=== PATIENT | female | born 1970 | race Caucasian/White ===

== ENCOUNTER 2017-01-05 13:00 | Outpatient (CLI) | payer OTHER ==
--- NOTE | 2017-01-05 15:00 | CT Preliminary Report ---
Exam: CT Abdomen/Pelvis W/O IMPRESSION: Small left ovary. Postoperative changes. [facility] SITE ID: [id number]
--- NOTE | 2017-01-05 15:02 | CT Report ---
EXAM: CT ABDOMEN AND PELVIS EXAM DATE: 01/05/2017 02:26 PM. CLINICAL HISTORY: PELVIC PAIN, HX OF HYSTER, ? RETAINED RT OVARY. COMPARISONS: None. TECHNIQUE: Routine helical CT imaging was performed through the abdomen and pelvis. IV contrast: None . Enteric contrast: No. Reconstructions: Coronal and sagittal. In accordance with CT protocol optimization, one or more of the following dose reduction techniques w ere utilized for this exam: automated exposure control, adjustment of mA and/or KV based on patient s ize, or use of iterative reconstructive technique. FINDINGS: Lung Bases: Unremarkable. Liver: Normal. No masses. Gallbladder/Bile Ducts: Surgically absent. No ductal dilation. Spleen: Normal. Pancreas: Normal. Adrenal Glands: Normal. Kidneys: Normal. No masses or hydronephrosis. Peritoneal Cavity/Bowel: Normal. No free fluid, free air or adenopathy. No masses or acute inflammato ry process. The appendix is well visualized and normal. Pelvic Organs: Unremarkable urinary bladder. Absent uterus. No definite right ovary. A small lobulate d structure in the left adnexa probably represents left ovary, measuring about 2.3 x 1.7 x 1.2 cm on coronal image 35 and sagittal image 33. Otherwise unremarkable. Vasculature: No aneurysms or other significant abnormality. Bones: No significant abnormality. Other: None. IMPRESSION: Small left ovary. Postoperative changes. [facility] Referring Provider Line: [phone] SITE ID: [id number]
== END 2017-01-05 13:01 | disposition home or self-care (01) ==
LOC: DI 13:00
PROVIDERS: ATTEND Family Medicine
DX: R10.2 Pelvic and perineal pain (principal)
CPT/HCPCS: 74176

== ENCOUNTER 2017-05-12 08:51 | Outpatient (CLI) | payer OTHER ==
[2017-05-12 10:05] LABS: MUDS CUTOFF CONCENTRATIONS CUTOFF CONC BELOW:
[2017-05-12 10:21] LABS: AMPHETAMINE SCREEN,URINE NEGATIVE (NEGATIVE); BENZODIAZEPINES SCREEN, URINE POSITIVE (NEGATIVE); COCAINE SCREEN URINE NEGATIVE (NEGATIVE); METHADONE SCREEN, URINE NEGATIVE (NEGATIVE); METHAMPHETAMINES SCREEN, URINE NEGATIVE (NEGATIVE); OPIATE SCREEN, URINE NEGATIVE (NEGATIVE); OXYCODONE SCREEN, URINE NEGATIVE (NEGATIVE); PROPOXYPHENE SCREEN, URINE NEGATIVE (NEGATIVE); TRICYCLIC ANTIDEPRESSANT,URINE NEGATIVE (NEGATIVE)
== END 2017-05-12 08:52 | disposition home or self-care (01) ==
LOC: LAB.R 08:51
PROVIDERS: ATTEND Family Medicine
DX: R10.2 Pelvic and perineal pain (principal); G89.4 Chronic pain syndrome
CPT/HCPCS: 80306

== ENCOUNTER 2017-06-29 21:30 | Emergency (ER) | payer OTHER ==
[2017-06-29] MEDS ORDERED: HYDROmorphone 1 MG/ML SYRINGE IM STA (22:15)
[2017-06-29] MEDS ORDERED: KETOROLAC 60 MG/2 ML VIAL IM STA (22:15)
[2017-06-29] MEDS ORDERED: ONDANSETRON ODT 4 MG TABLET TL STA (22:15)
--- NOTE | 2017-06-29 22:30 | ED Physician Documentation ---
PD HPI ABD PAIN - Stated complaint Stated Complaint: FEMALE - Chief complaint Chief Complaint: Abd Pain - History obtained from History obtained from: Patient - History of Present Illness Timing - onset: Other (46-year-old woman who remotely had robot-assisted laparoscopy with hysterectomy and oophorectomy, but was having chronic left pelvic pain and on a CT done late last year it looked like there was residual ovarian tissue which she was upset about because the original surgery was for recurrent ovarian cyst pain. She is being managed with control for this, but her control ran out 2 weeks ago and today has much more severe than usual left-sided pelvic pain radiating to the back. She tried 1 of her home oxycodone but it did not help much. She denies nausea, fevers, changes in bowel movements. No urinary complaints.) Review of Systems Constitutional: denies: Fever, Chills Cardiac: denies: Chest pain / pressure, Palpitations Respiratory: denies: Dyspnea, Cough GI: reports: Abdominal Pain. denies: Vomiting, Diarrhea PD PAST MEDICAL HISTORY - Present Medications Home Medications: Ambulatory Orders Medication Instructions Recorded Confirmed Ketorolac [Toradol] 10 mg PO Q6H PRN #14 tablet 06/29/17 Ondansetron HCl [Zofran] 4 mg PO Q6H PRN #10 tablet 06/29/17 - Allergies Allergies/Adverse Reactions: Allergies Allergy/AdvReac Type Severity Reaction Status Date / Time acetaminophen [From Vicodin] Allergy Unknown Verified 06/29/17 21:39 hydrocodone [From Vicodin] Allergy Unknown Verified 06/29/17 21:39 latex Allergy Itching Verified 06/29/17 21:39 scopolamine Allergy Hives Verified 06/29/17 21:39 Sulfa (Sulfonamide Allergy Unknown Verified 06/29/17 21:39 Antibiotics) PD ED PE NORMAL - Vitals Vital signs reviewed: Yes - General General: Alert and oriented X 3, No acute distress - Abdomen Abdomen: Normal bowel sounds, Soft, Non tender - Back Back: No CVA TTP, No spinal TTP - Neuro Neuro: Alert and oriented X 3, Normal speech Results - Vitals Vitals: Vital Signs - 24 hr 06/29/17 21:39 Temperature 36.9 C Heart Rate 89 Respiratory 20 Rate Blood Pressure 141/86 H O2 Saturation 99 Oxygen O2 Source Room air - Labs Labs: Laboratory Tests 06/29/17 06/29/17 06/29/17 22:27 22:43 22:43 WBC 9.7 RBC 4.73 Hgb 14.9 Hct 43.8 MCV 92.7 MCH 31.6 H MCHC 34.1 RDW 12.3 Plt Count 221 MPV 8.3 Neut # 6.7 H Lymph # 2.1 [place] # 0.9 Eos # 0.1 Baso # 0.0 Absolute Nucleated RBC 0.00 Nucleated RBC % 0.0 Sodium 136 Potassium 3.8 Chloride 101 Carbon Dioxide 27 Anion Gap 8.0 BUN 9 Creatinine 0.6 Estimated GFR (MDRD) 109 Glucose 105 H Calcium 9.0 Total Bilirubin 0.6 AST 23 ALT 24 Alkaline Phosphatase 60 Total Protein 7.2 Albumin 4.2 Globulin 3.0 Albumin/Globulin Ratio 1.4 Lipase 17 L Urine Color YELLOW Urine Clarity CLEAR Urine pH 7.0 Ur Specific [place] 1.015 Urine Protein NEGATIVE Urine Glucose (UA) NEGATIVE Urine Ketones NEGATIVE Urine Occult Blood TRACE-INTA Urine Nitrite NEGATIVE Urine Bilirubin NEGATIVE Urine Urobilinogen 0.2 (NORMAL) Ur Leukocyte Esterase NEGATIVE Ur Microscopic Review NOT INDICATED Urine Culture Comments NOT INDICATED Urine HCG, Qual NEGATIVE PD MEDICAL DECISION MAKING - ED course ED course: Given the timing, 2 weeks after the cessation of control, this is likely ovarian cyst pain. Given the complexity of the case I think pelvic MRI would be more sensitive than ultrasound and I advised follow-up with her primary care physician for this. Departure - Departure Disposition: 01 Home, Self Care Clinical Impression: Abdominal pain Qualifiers: Abdominal location: left lower quadrant Qualified Code(s): R10.32 - Left lower quadrant pain Condition: Good Record reviewed to determine appropriate education?: Yes Instructions: ED Pelvic Pain [facility] Prescriptions: Ketorolac [Toradol] 10 mg PO Q6H PRN #14 tablet PRN Reason: Pain Ondansetron HCl [Zofran] 4 mg PO Q6H PRN #10 tablet PRN Reason: Nausea / Vomiting Comments: Continue your oxycodone as needed, follow-up with Dr. Avery, consider pelvic MRI to better delineate your pelvic structures and after that referral to gynecology to see if repeat surgery might be an option. Increase her control to twice a day for the next couple of days. Return if worse or if new symptoms develop.
[2017-06-29 22:34] LABS: BILIRUBIN,URINE NEGATIVE (NEGATIVE); GLUCOSE, URINE (UA) NEGATIVE (NEGATIVE); KETONES,URINE (UA) NEGATIVE (NEGATIVE); LEUKOCYTE ESTERASE, URINE NEGATIVE (NEGATIVE); NITRITE,URINE NEGATIVE (NEGATIVE); OCCULT BLOOD,URINE TRACE-INTA (NEGATIVE); PROTEIN,URINE NEGATIVE (NEGATIVE); UROBILINOGEN,URINE 0.2 (NORMAL) E.U./dL (NORMAL)
[2017-06-29 22:37] LABS: CLARITY,URINE CLEAR (CLEAR); HCG UR QUAL NEGATIVE
[2017-06-29 22:50] LABS: BASOPHILS % (AUTO) 0.4 %; EOSINOPHILS # (AUTO) 0.1 10^3/uL (0.0-0.7); EOSINOPHILS % (AUTO) 0.6 %; HGB - HEMOGLOBIN 14.9 g/dL (12.0-16.0); LYMPHOCYTES # (AUTO) 2.1 10^3/uL (1.5-3.5); LYMPHOCYTES % (AUTO) 21.3 %; MEAN CORPUSCULAR HEMOGLOBIN 31.6 pg (27.0-31.0); MEAN CORPUSCULAR HGB CONC 34.1 g/dL (32.0-36.0); MEAN CORPUSCULAR VOLUME 92.7 fL (81.0-99.0); MEAN PLATELET VOLUME 8.3 fL (7.9-10.8); MONOCYTES # (AUTO) 0.9 10^3/uL (0.0-1.0); MONOCYTES % (AUTO) 8.8 %; NEUTROPHILS # (AUTO) 6.7 10^3/uL (1.5-6.6); NEUTROPHILS % (AUTO) 68.9 %; PLT - PLATELET COUNT 221 10^3/uL (130-450); RED BLOOD COUNT 4.73 10^6/uL (4.20-5.40); RED CELL DISTRIBUTION WIDTH 12.3 % (12.0-15.0); WHITE BLOOD COUNT 9.7 x10^3/uL (4.8-10.8)
[2017-06-29 23:03] LABS: ALBUMIN 4.2 g/dL (3.2-5.5); ALBUMIN/GLOBULIN RATIO 1.4 (1.0-2.2); BILIRUBIN,TOTAL 0.6 mg/dL (0.2-1.0); CREATININE 0.6 mg/dL (0.4-1.0); TOTAL PROTEIN 7.2 g/dL (6.7-8.2)
[2017-06-29] MEDS ORDERED: ONDANSETRON ODT 4 MG Prepack 2 TL STA (23:12)
[2017-06-29 23:30] VITALS: BP 134/85
== END 2017-06-29 23:30 | disposition home or self-care (01) ==
LOC: ED 21:30
DX: R10.32 Left lower quadrant pain (principal)
CPT/HCPCS: 36415; 80053; 81003; 81025; 83690; 85025; 96372; 99282; 99283; J1170; Q0162; 81001; 87086

== ENCOUNTER 2017-06-30 18:44 | Emergency (ER) | payer OTHER ==
[2017-06-30] MEDS ORDERED: ONDANSETRON 4 MG/2 ML VIAL IVP STA ×2 (19:23→23:29)
[2017-06-30 19:55] LABS: BASOPHILS # (AUTO) 0.1 10^3/uL (0.0-0.1); BASOPHILS % (AUTO) 0.7 %; EOSINOPHILS % (AUTO) 0.3 %; LYMPHOCYTES # (AUTO) 1.7 10^3/uL (1.5-3.5); LYMPHOCYTES % (AUTO) 17.2 %; MEAN CORPUSCULAR HEMOGLOBIN 31.3 pg (27.0-31.0); MEAN CORPUSCULAR VOLUME 92.1 fL (81.0-99.0); MEAN PLATELET VOLUME 8.5 fL (7.9-10.8); MONOCYTES # (AUTO) 0.7 10^3/uL (0.0-1.0); MONOCYTES % (AUTO) 7.1 %; NEUTROPHILS # (AUTO) 7.3 10^3/uL (1.5-6.6); NEUTROPHILS % (AUTO) 74.7 %; PLT - PLATELET COUNT 212 10^3/uL (130-450); RED BLOOD COUNT 4.46 10^6/uL (4.20-5.40); RED CELL DISTRIBUTION WIDTH 12.3 % (12.0-15.0); WHITE BLOOD COUNT 9.8 x10^3/uL (4.8-10.8)
[2017-06-30 20:00] LABS: PT - PROTHROMBIN TIME 10.8 secs (9.9-12.6)
[2017-06-30 20:07] LABS: ALBUMIN 3.8 g/dL (3.2-5.5); ALBUMIN/GLOBULIN RATIO 1.4 (1.0-2.2); BILIRUBIN,TOTAL 0.7 mg/dL (0.2-1.0); CALCIUM 8.6 mg/dL (8.5-10.3); CREATININE 0.8 mg/dL (0.4-1.0); TOTAL PROTEIN 6.6 g/dL (6.7-8.2)
[2017-06-30] MEDS ORDERED: SODIUM CHLORIDE 0.9% 1,000 ML IV ONE (20:10)
[2017-06-30] MEDS ORDERED: KETOROLAC 60 MG/2 ML VIAL IVP STA (20:10)
[2017-06-30] MEDS ORDERED: IOPAMIDOL-300 100 ML VIAL ONE (20:27)
[2017-06-30] MEDS ORDERED: IOPAMIDOL-300 100 ML VIAL IVP ONE (20:46)
--- NOTE | 2017-06-30 21:15 | CT Report ---
EXAM: CT ABDOMEN AND PELVIS EXAM DATE: 06/30/2017 08:56 PM. CLINICAL HISTORY: Flank and abdomen pain. Nausea and vomiting. Prior hysterectomy. COMPARISONS: 01/05/2017. TECHNIQUE: Routine helical CT imaging was performed through the abdomen and pelvis. IV contrast: 100M L ISOVUE 300. Enteric contrast: No. Reconstructions: Coronal and sagittal. In accordance with CT protocol optimization, one or more of the following dose reduction techniques w ere utilized for this exam: automated exposure control, adjustment of mA and/or KV based on patient s ize, or use of iterative reconstructive technique. FINDINGS: Lung Bases: Unremarkable. Liver: Normal. No masses. Gallbladder/Bile Ducts: Gallbladder surgically absent, as before. No ductal dilatation. Spleen: Normal. Pancreas: Normal. Adrenal Glands: Normal. Kidneys: Delayed left nephrographic enhancement. Minimal left perinephric and proximal. Ureteral fat stranding. Minimal left hydronephrosis and proximal hydroureter. No renal or ureteral calculi are moustapha ntified. Right kidney is normal. Peritoneal Cavity/Bowel: Unopacified stomach and small bowel are nondistended. Appendix is normal. Th ere is a small amount of formed stool in the colon. There is no pericolonic fat stranding. There is n o lymphadenopathy, ascites, or pneumoperitoneum. Pelvic Organs: Bladder normal in size and contour. No bladder calculi. No perivesical edema. Uterus s urgically absent. Right adnexa unremarkable. There is a 5.3 x 4.2 x 4.5 cm left adnexal/ovarian cyst, new. There is no significant adnexal fat stranding. Vasculature: No aneurysms or other significant abnormality. Bones: No significant abnormality. Other: Tiny fat-containing left inguinal hernia. IMPRESSION: 1. New 5.3 x 4.2 x 4.5 cm left ovarian/adnexal cyst. No adnexal edema is identified. Clinical correla tion is requested. Pelvic ultrasound may be evaluated further characterization. 2. Minimal left hydronephrosis and hydroureter with delayed left nephrographic enhancement and minima l perinephric fat stranding. The findings could reflect obstruction from mass effect on the left ovar fatuma cyst on the left ovary. Pyelonephritis is also a consideration. 3. Tiny fat-containing left inguinal hernia. [facility] Referring Provider Line: [phone] SITE ID: [id number]
[2017-06-30 21:20] LABS: BILIRUBIN,URINE NEGATIVE (NEGATIVE); GLUCOSE, URINE (UA) NEGATIVE (NEGATIVE); KETONES,URINE (UA) 40 mg/dL (NEGATIVE); LEUKOCYTE ESTERASE, URINE NEGATIVE (NEGATIVE); NITRITE,URINE NEGATIVE (NEGATIVE); OCCULT BLOOD,URINE TRACE-LYSE (NEGATIVE); PROTEIN,URINE NEGATIVE (NEGATIVE); UROBILINOGEN,URINE 0.2 (NORMAL) E.U./dL (NORMAL)
[2017-06-30 21:29] LABS: CLARITY,URINE CLEAR (CLEAR)
[2017-06-30] MEDS ORDERED: HYDROmorphone 1 MG/ML SYRINGE IVP STA ×2 (21:53→23:29)
[2017-06-30] MEDS ORDERED: POTASSIUM CHLOR 20 MEQ/100 ML 20 MEQ/100 ML BAG IV ONE (22:34)
[2017-06-30] MEDS ORDERED: DEXTROSE 5%-0.45% NACL 1,000 ML IV ONE (22:34)
[2017-06-30] MEDS ORDERED: POTASSIUM CHLOR 10 MEQ/100 ML 10 MEQ/100 ML BAG IV ONE (23:29)
[2017-07-01] MEDS ORDERED: FAMOTIDINE 20 MG/2 ML VIAL IVP STA (00:34)
[2017-07-01] MEDS ORDERED: HYDROmorphone 2 MG TABLET PO STA (01:07)
[2017-07-01] MEDS ORDERED: HYDROmorphone 1 MG/ML SYRINGE IVP STA (01:26)
[2017-07-01] MEDS ORDERED: PROMETHAZINE INJ 25 MG in SODIUM CHLORIDE 0.9% 50 ML IV STA (01:26)
--- NOTE | 2017-07-01 01:30 | ED Physician Documentation ---
PD HPI ABD PAIN - Stated complaint Stated Complaint: VOMITING BLOOD - Chief complaint Chief Complaint: General - History obtained from History obtained from: Patient - History of Present Illness Timing - onset: Chronic Timing - details: Gradual onset, Still present Quality: Cramping, Aching Location: LUQ, LLQ Radiation: Left flank Associated symptoms: Nausea, Vomiting Similar symptoms before: Work up / diagnostics, Treatment Recently seen: Emergency Dept - Additional information Additional information: patient is a 46 year old female with a history of multiple abdominal surgeries who is presenting to the emergency department for abdominal pain. Patient was seen a few days before and told it was likely a cyst. patient states that the pain has become worse and is now nauseated so she came back in for evaluation. Patient reports that she had a hysterectomy in 2016 with subsequent complications. Review of Systems Constitutional: denies: Fever, Chills Eyes: reports: Reviewed and negative Ears: reports: Reviewed and negative Nose: denies: Rhinorrhea / runny nose, Congestion Throat: reports: Reviewed and negative Cardiac: denies: Chest pain / pressure, Palpitations Respiratory: denies: Dyspnea, Cough GI: reports: Abdominal Pain, Nausea, Vomiting. denies: Constipation, Diarrhea : reports: Hesitancy. 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 - Past Surgical History General: Cholecystectomy /CUSTOMER ACCOUNT EXECUTIVE: Hysterectomy, Oophrectomy HEENT: Tonsil/Adenoidectomy - Present Medications Home Medications: Ambulatory Orders Medication Instructions Recorded Confirmed Ketorolac [Toradol] 10 mg PO Q6H PRN #14 tablet 06/29/17 Ondansetron HCl [Zofran] 4 mg PO Q6H PRN #10 tablet 18 HYDROmorphone [Dilaudid] 2 mg PO Q6H #10 tablet 07/01/17 Ondansetron Odt [Zofran] 4 mg TL Q6H PRN #10 tablet 18 Promethazine [Phenergan] 25 mg PO Q6H PRN #10 tab 07/01/17 - Allergies Allergies/Adverse Reactions: Allergies Allergy/AdvReac Type Severity Reaction Status Date / Time acetaminophen [From Vicodin] Allergy Unknown Verified 06/30/17 19:19 hydrocodone [From Vicodin] Allergy Unknown Verified 06/30/17 19:19 latex Allergy Itching Verified 06/30/17 19:19 scopolamine Allergy Hives Verified 06/30/17 19:19 Sulfa (Sulfonamide Allergy Unknown Verified 06/30/17 19:19 Antibiotics) - Social History Does the pt smoke?: No Smoking Status: Never smoker Does the pt drink ETOH?: No Does the pt have substance abuse?: No - Immunizations Immunizations are current?: Yes PD ED PE NORMAL - Vitals Vital signs reviewed: Yes - General General: Alert and oriented X 3 - HEENT HEENT: Atraumatic, PERRL - Neck Neck: Supple, no meningeal sign - Respiratory Respiratory: No respiratory distress - Abdomen Abdomen: Soft - Derm Derm: Normal color, Warm and dry - Extremities Extremities: No deformity, No edema - Neuro Neuro: Alert and oriented X 3, No motor deficit, No sensory deficit, Normal speech Eye Opening: Spontaneous Motor: Obeys Commands Verbal: Oriented GCS Score: 15 PD ED PE EXPANDED - General General: Alert, Anxious, In Pain - Abdomen Abdomen: No: Tender to palpation, Rebound, Guarding - Back Back: CVA TTP left Results - Vitals Vitals: Vital Signs - 24 hr 06/30/17 06/30/17 06/30/17 19:02 19:53 21:34 Temperature 36.6 C Heart Rate 91 94 91 Respiratory 28 H 20 15 Rate Blood Pressure 154/138 H 122/82 H 116/71 O2 Saturation 99 100 100 06/30/17 06/30/17 07/01/17 22:32 23:43 00:43 Temperature Heart Rate 89 90 85 Respiratory 15 15 15 Rate Blood Pressure 114/80 111/66 122/76 O2 Saturation 94 92 99 07/01/17 01:39 Temperature Heart Rate 93 Respiratory 15 Rate Blood Pressure 121/78 O2 Saturation 99 Oxygen O2 Source Room air - Labs Labs: Laboratory Tests 06/30/17 06/30/17 06/30/17 19:35 19:35 19:35 WBC 9.8 RBC 4.46 Hgb 14.0 Hct 41.1 MCV 92.1 MCH 31.3 H MCHC 34.0 RDW 12.3 Plt Count 212 MPV 8.5 Neut # 7.3 H Lymph # 1.7 [place] # 0.7 Eos # 0.0 Baso # 0.1 Absolute Nucleated RBC 0.00 Nucleated RBC % 0.0 PT 10.8 INR 1.0 Sodium Potassium Chloride Carbon Dioxide Anion Gap BUN Creatinine Estimated GFR (MDRD) Glucose Calcium Total Bilirubin AST ALT Alkaline Phosphatase Total Protein Albumin Globulin Albumin/Globulin Ratio Lipase Urine Color Urine Clarity Urine pH Ur Specific [place] Urine Protein Urine Glucose (UA) Urine Ketones Urine Occult Blood Urine Nitrite Urine Bilirubin Urine Urobilinogen Ur Leukocyte Esterase Ur Microscopic Review Urine Culture Comments Blood Type A POSITIVE Antibody Screen NEGATIVE 06/30/17 06/30/17 19:35 21:05 WBC RBC Hgb Hct MCV MCH MCHC RDW Plt Count MPV Neut # Lymph # [place] # Eos # Baso # Absolute Nucleated RBC Nucleated RBC % PT INR Sodium 133 L Potassium 3.3 L Chloride 104 Carbon Dioxide 20 L Anion Gap 9.0 BUN 11 Creatinine 0.8 Estimated GFR (MDRD) 78 L Glucose 111 H Calcium 8.6 Total Bilirubin 0.7 AST 22 ALT 22 Alkaline Phosphatase 60 Total Protein 6.6 L Albumin 3.8 Globulin 2.8 Albumin/Globulin Ratio 1.4 Lipase 19 L Urine Color YELLOW Urine Clarity CLEAR Urine pH 8.0 H Ur Specific [place] 1.010 Urine Protein NEGATIVE Urine Glucose (UA) NEGATIVE Urine Ketones 40 H Urine Occult Blood TRACE-LYSE Urine Nitrite NEGATIVE Urine Bilirubin NEGATIVE Urine Urobilinogen 0.2 (NORMAL) Ur Leukocyte Esterase NEGATIVE Ur Microscopic Review NOT INDICATED Urine Culture Comments NOT INDICATED Blood Type Antibody Screen - Rads (name of study) ct abd pelvis Radiology: Final report received (left ovarian cyst possible compression of left ureter causing hydronephrosis) ultrasound Radiology: Final report received (hemorrhagic ovarian cyst) PD MEDICAL DECISION MAKING - ED course Complexity details: reviewed old records, reviewed results, re-evaluated patient , considered differential, d/w patient, d/w family, d/w education consultant ED course: Patient was seen and examined at bedside. IV access was gained and labs were drawn. patient was treated with IV fluids, zofran and toradol. Imaging was ordered. When patient returned from imaging the results were reviewed. patient was found to have mild hydro and a left adenexal cyst. patient's urine was collected and showed no signs of infection. Patient was treated with dilaudid for pain. Dr. Wong was contacted and he came and evaluated the patient. (see dictated history and physical). After reviewing the images and the operative notes from patient's previous surgery it was decided that patient needed a higher level of care with specialty back up. He contacted [facility]. He discussed the case with the surgical team who stated that patient could be sent home after an ultrasound and follow up with them on monday. 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 [Other] (call on monday to schedule an appointment) Prescriptions: HYDROmorphone [Dilaudid] 2 mg PO Q6H #10 tablet Ondansetron Odt [Zofran] 4 mg TL Q6H PRN #10 tablet PRN Reason: Nausea / Vomiting Promethazine [Phenergan] 25 mg PO Q6H PRN #10 tab PRN Reason: Nausea / Vomiting Comments: Your symptoms today are being caused by an ovarian cyst. You will need to stay well hydrated and take ibuprofen for pain and dilaudid for breakthrough pain. You should call clinic at [phone] option number 3 on monday to schedule a follow up appointment. You may return to the emergency department at any time for new, worsening or uncontrollable symptoms.
--- NOTE | 2017-07-01 02:40 | Ultrasound Preliminary Report ---
Exam: US PELVIC NON OB W/DOPPLER LTD IMPRESSION: 1. Left ovarian 4.5 cm hemorrhagic cyst. No apparent complication. 2. Post hysterectomy and right oophorectomy. [facility] SITE ID: [id number]
--- NOTE | 2017-07-01 02:45 | Ultrasound Report ---
EXAM: PELVIC ULTRASOUND EXAM DATE: 07/01/2017 01:41 AM. CLINICAL HISTORY: Abdominal pain. 5 x 4 cm ovarian cyst seen on CT. COMPARISON: CT prior evening. TECHNIQUE: Realtime transabdominal pelvic scan performed to identify the uterus and adnexa and as an overview of other pelvic structures, followed by transvaginal scan to provide greater detail of the u terus and adnexa, with static image documentation. FINDINGS: Uterus: Removed. Right Ovary: Removed. Left Ovary: Volume 58 cc. Enlarged containing a complex hemorrhagic-appearing 39 x 41 x 47 mm cyst. B lood flow documented to the adjacent ovarian parenchyma during the exam. Free Fluid: Small. Other: None. IMPRESSION: 1. Left ovarian 4.5 cm hemorrhagic cyst. No apparent complication. 2. Post hysterectomy and right oophorectomy. [facility] Referring Provider Line: [phone] SITE ID: [id number]
[2017-07-01 03:02] VITALS: BP 123/72
--- NOTE | 2017-07-01 03:20 | HISTORY & PHYSICAL EXAMINATION ---
DATE OF SERVICE: 07/01/2017 Physician: Cecilio Wong MD IDENTIFICATION: The patient is a 46-year-old, G2, P0, female whose last menstrual period was at the time of hysterectomy in 2014. CHIEF COMPLAINT: Left-sided abdominal as well as flank pain. HISTORY OF PRESENT ILLNESS: The patient states that at roughly 4:30 this evening she developed right-sided abdominal flank pain. This was quite severe in nature. She presented to the ED at 1840, at which time her pain was getting progressively worse with time. She states her pain was roughly a 4 to 8 out of 10. She states it is worse with motion, but denies any relationship to bowel motion or voiding. She received a CT while in the ED, at which time she had a 5.3 x 4.2 x 4.5 cm left adnexal cyst. This was new in onset since December 2016, at which time she had a normal CT. Her CT also showed a left hydronephrosis, as well as hydroureter, which was noted to be mild. The patient in the past has been taking oral contraceptive pills for suppression, but quit them 2 weeks ago. Her surgical history is fairly complex. She had a suspected ectopic , at which time she had a right salpingectomy for the supposed ectopic , which proved to be not so. The patient lost a because of this. She has a history of recurring ovarian cysts and, because of this, she decided to pursue on a hysterectomy with bilateral oophorectomy. Robotic surgery was performed in April 2014, at which time the right ovary and uterus were taken out. At that time, she was noted to have adenomyosis, as well as small fibroid. The left tube and ovary were left in place because of extensive adhesions on that side. She had a complication of a cuff abscess at that time. She also had difficulty with an infection following her exploratory laparotomy for her suspected ectopic . In September 2014, she underwent a robotic left salpingo-oophorectomy. This also showed to have extensive adhesions and was quite difficult. 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 The pathology reports from both robotic surgeries were compatible with the tissue removed. She has done well, as long as she stayed on control pills. She presents with the aforementioned pain. MEDICAL HISTORY: Positive for some asthma. SURGICAL HISTORY: Positive for a tonsillectomy, adenoidectomy, laparoscopic cholecystectomy, right knee scope surgery, a right salpingectomy, a robotic total hysterectomy with right oophorectomy, and a robotic left salpingo-oophorectomy. CURRENT MEDICATIONS 1. Oxycodone 10 mg. 2. She also uses an inhaler on a p.r.n. basis. ALLERGIES 1. VICODIN. 2. LATEX. 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 PHYSICAL EXAMINATION GENERAL: The patient is a well-developed, well-nourished female, in mild to moderate distress. She has required Dilaudid x2. VITAL SIGNS: Blood pressure 111/66, respirations are 16. Pain she relates to being 4 to 8 out of 10. HEENT: Pupils are equal, round. Extraocular muscles are intact. HEART: Regular rate and rhythm without murmurs. LUNGS: Lung da silva are clear without rales or wheezes. ABDOMEN: Corpulent with evidence of multiple scars from previous laparotomy, as well as laparoscopic cholecystectomy, liposuction, as well as her laparoscopic hysterectomy and oophorectomies. There are good bowel sounds noted. There is no rebound noted. There is some tenderness in the left side of the abdomen. BACK: Shows some left flank tenderness. PELVIC: Reveals a palpable cyst on the left side of the pelvis. LABORATORY DATA: Electrolytes show a hyponatremia at 130, hypokalemia at 3.3. Her creatinine is 0.8, and her BUN is 11. Glucose is 111 also. CBC shows a white count of 9.8 , hemoglobin of 14.0, hematocrit of 41.1, platelets were 212. INR was 1.0. CT showed a 5.3 x 5.2 x 5.5 cm cystic structure on the left hand side, which is adjacent to and abutting the ureter on the left-hand side. There is a mild left hydronephrosis, as well as hydroureter. IMPRESSION: A 46-year-old, G2, P0 female with a left pelvic mass, presumably ovarian in origin with mild hydroureter, as well as hydronephrosis. She has normal creatinine, as well as complete blood count, urinalysis also. PLAN: Following a discussion with Dr. Lesia Nash, [employer] oncologist at the [facility], it was her recommendation that the patient be given pain medications. She is instructed to call the clinic at the [facility] on Monday morning. Telephone number is [phone], option #3. She was told that should she have increasing pain that she should present sooner. She is being discharged with Dilaudid p.o. TD: 07/01/2017 03:18 [place]
== END 2017-07-01 03:03 | disposition home or self-care (01) ==
LOC: ED 18:44
DX: N83.202 Unspecified ovarian cyst, left side (principal)
CPT/HCPCS: 36415; 74177; 76856; 80053; 81003; 83690; 85025; 85610; 86850; 86900; 86901; 93976; 96361; 96365; 96367; 96375; 96376; 99284; 99285; A9270; J1170; J7040; Q9967; 81001; 87086

== ENCOUNTER 2017-11-27 07:11 | Outpatient (CLI) | payer OTHER ==
[2017-11-27] MEDS ORDERED: IOPAMIDOL-300 100 ML VIAL ONE (07:22)
[2017-11-27] MEDS ORDERED: IOPAMIDOL-300 100 ML VIAL IVP ONE (07:50)
--- NOTE | 2017-11-27 09:42 | CT Report ---
Procedure Date: 11/27/2017 Accession Number: [id number] / [id number] Procedure: CT - Abdomen/Pelvis W/WO CPT Code: FULL RESULT: EXAM: CT ABDOMEN WITHOUT AND WITH CONTRAST EXAM DATE: 11/27/2017 08:11 AM. HISTORY: Hematuria. COMPARISON: Abdomen/pelvis with contrast 06/30/2017. TECHNIQUE: Routine helical CT imaging was performed through the abdomen before and after administration of IV contrast: Isovue 300 100 mL. Enteric contrast: No. Reconstruction: Coronal and sagittal. In accordance with CT protocol optimization, one or more of the following dose reduction techniques were utilized for this exam: automated exposure control, adjustment of mA and/or KV based on patient size, or use of iterative reconstructive technique. FINDINGS: Lung Bases: Unremarkable. Liver: Normal. No masses. Gallbladder/Bile Ducts: Status post cholecystectomy. Spleen: Normal. Pancreas: Normal. No masses or ductal obstruction. Adrenal Glands: Normal. Kidneys, ureters and bladder: Normal. No masses or hydronephrosis. The excretory phase is limited by partial opacification of the ureters. Within these limitations, no ureteral mass is identified. No bladder mass. Peritoneal Cavity/Bowel: Normal. No free fluid, free air or adenopathy. No masses or acute inflammatory process. Vasculature: No aneurysms or other significant abnormality. Bones: No aggressive osseous lesion. Other: Previously seen pelvic cyst is no longer identified. IMPRESSION: No renal masses seen. Limited evaluation of the ureters in the excretory phase with no abnormality identified. No bladder masses detected. [facility]
== END 2017-11-27 07:12 | disposition home or self-care (01) ==
LOC: DI 07:11
PROVIDERS: ATTEND Family Medicine
DX: R31.9 Hematuria, unspecified (principal)
CPT/HCPCS: 74178; Q9967

== ENCOUNTER 2019-12-30 19:51 | Emergency (ER) | payer OTHER ==
[2019-12-30] MEDS ORDERED: TETANUS/DIPHTHERIA/PERTUSSIS 0.5 ML SYRINGE IM ONE (20:07)
--- NOTE | 2019-12-30 20:16 | ED Physician Documentation ---
PD HPI UPPER EXT INJURY - Stated complaint Stated Complaint: FINGER LAC - Chief complaint Chief Complaint: Laceration - History obtained from History obtained from: Patient (She was taking out the garbage and pushing down and cut her nondominant left fourth finger on a soup can lid at home prior to arrival. Last tetanus is unknown.) Review of Systems Constitutional: reports: Reviewed and negative Eyes: reports: Reviewed and negative Ears: reports: Reviewed and negative Throat: reports: Reviewed and negative PD PAST MEDICAL HISTORY - Past Medical History Past Medical History: Yes MOLDER CLOSED MOLDS: Ovarian cysts - Past Surgical History Past Surgical History: Yes General: Cholecystectomy /MOLDER CLOSED MOLDS: Hysterectomy, Oophrectomy HEENT: Tonsil/Adenoidectomy - Present Medications Home Medications: Ambulatory Orders Medication Instructions Recorded Confirmed Control 1 tab ORAL DAILY 12/30/19 oxyCODONE [Roxicodone] 5 mg PO Q4-6H PRN 12/30/19 12/30/19 - Allergies Allergies/Adverse Reactions: Allergies Allergy/AdvReac Type Severity Reaction Status Date / Time acetaminophen [From Vicodin] Allergy Unknown Verified 12/30/19 19:58 hydrocodone [From Vicodin] Allergy Unknown Verified 12/30/19 19:58 latex Allergy Itching Verified 12/30/19 19:58 scopolamine Allergy Hives Verified 12/30/19 19:58 Sulfa (Sulfonamide Allergy Unknown Verified 12/30/19 19:58 Antibiotics) - Social History Does the pt smoke?: No Smoking Status: Never smoker Does the pt drink ETOH?: No Does the pt have substance abuse?: No - Immunizations Immunizations are current?: No Immunizations: TDAP >10years/unknown PD ED PE NORMAL - Vitals Vital signs reviewed: Yes - General General: Alert and oriented X 3, No acute distress - Extremities Extremities: Other (1 cm shallow laceration on the pulp of the left fourth finger, ulnar side. No active bleeding. It seems shallow. Normal neurovascular function of the tip.) - Neuro Neuro: Alert and oriented X 3, Normal speech Results - Vitals Vitals: Vital Signs - 24 hr 12/30/19 19:53 Temperature 36.4 C L Heart Rate 72 Respiratory 14 Rate Blood Pressure 120/80 O2 Saturation 99 Oxygen O2 Source Room air Procedures - Laceration (location) Left fourth finger Length in cm: 1 Wound type: Linear, Superficial Neurovascular status: Sensory intact, Motor intact Tendon involvement: Tendon intact Wound Preparation: Irrigated copiously NS Skin layer closure: Dermabond, Steri strips Other: Tetanus booster given Complexity: Simple Departure - Departure Disposition: 01 Home, Self Care Clinical Impression: Laceration Condition: Good Record reviewed to determine appropriate education?: Yes Instructions: ED Laceration Ext Skin Glue
[2019-12-30 20:24] VITALS: BP 120/72
== END 2019-12-30 20:24 | disposition home or self-care (01) ==
LOC: ED 19:51
DX: S61.215A Laceration without foreign body of left ring finger without damage to nail, initial encounter (principal); W26.8XXA Contact with other sharp object(s), not elsewhere classified, initial encounter; Z23 Encounter for immunization
CPT/HCPCS: 12001; 90471; 99282; 99283

== ENCOUNTER 2020-11-16 08:00 | Outpatient (CLI) | payer OTHER | END 2020-11-16 23:59 | disposition home or self-care (01) | LOC: LAB.S 08:00 | PROVIDERS: ATTEND Physician Assistant Medical | DX: R51.9 Headache, unspecified (principal); R19.7 Diarrhea, unspecified; Z20.822 Contact with and (suspected) exposure to COVID-19 ==

== ENCOUNTER 2022-01-11 17:49 | Emergency (ER) | payer OTHER ==
[2022-01-11] MEDS ORDERED: HYDROmorphone 1 MG/ML CARPUJECT IVP STA (18:21)
[2022-01-11] MEDS ORDERED: SODIUM CHLORIDE 0.9% 1,000 ML IV STA (18:21)
--- NOTE | 2022-01-11 18:26 | ED Physician Documentation ---
History of Present Illness - Stated complaint Stated Complaint: ABD PAIN - Chief complaint Chief Complaint: Abd Pain - History obtained from History obtained from: Patient - History of Present Illness Timing: How many days ago (5) Pain level max: 9 Pain level now: 8 - Additonal information Additional information: Patient is a 51-year-old female who presents to the emergency department abdominal pain. She states this been ongoing for the past 5 days. She describes the pain as burning. It is in the lower abdomen. She states that she has had 2 hysterectomies. They attempted to remove her left ovary but could not be found under the reportedly severe scar tissue that she has in her abdomen. She states that she has a history of polycystic ovarian syndrome. Stopped her control recently and began to have this pain. She states that she went back on the hormonal OCPs. She states that she is taking oxycodone at home without relief. She has had a small amount of diarrhea. No vomiting. No fevers. No chills. No vaginal bleeding or discharge. 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 Other Past Medical History: Polycystic ovarian syndrome - Past Surgical History Past Surgical History: Yes General: Cholecystectomy /INTELLIGENCE CONSULTANT: Hysterectomy, Oophrectomy HEENT: Tonsil/Adenoidectomy - Present Medications Home Medications: Ambulatory Orders Medication Instructions Recorded Confirmed Control 1 tab ORAL DAILY 12/30/19 01/11/22 oxyCODONE [Roxicodone] 5 mg PO Q4-6H PRN 12/30/19 01/11/22 HYDROmorphone [Dilaudid] 2 mg PO Q6H PRN #14 tablet 01/11/22 - Allergies Allergies/Adverse Reactions: Allergies Allergy/AdvReac Type Severity Reaction Status Date / Time acetaminophen [From Vicodin] Allergy Unknown Verified 01/11/22 17:55 hydrocodone [From Vicodin] Allergy Unknown Verified 01/11/22 17:55 latex Allergy Itching Verified 01/11/22 17:55 scopolamine Allergy Hives Verified 01/11/22 17:55 Sulfa (Sulfonamide Allergy Unknown Verified 01/11/22 17:55 Antibiotics) - Social History Does the pt smoke?: No Smoking Status: Never smoker Does the pt drink ETOH?: No Does the pt have substance abuse?: No - Immunizations Immunizations are current?: No Immunizations: TDAP >10years/unknown PD ED PE NORMAL - Vitals Vital signs reviewed: Yes - General General: Alert and oriented X 3, Other (Appears uncomfortable.) - HEENT HEENT: Moist mucous membranes - Neck Neck: Supple, no meningeal sign - Cardiac Cardiac: RRR, Strong equal pulses - Respiratory Respiratory: No respiratory distress, Clear bilaterally - Abdomen Abdomen: Soft, Non distended, Other (Mild diffuse tenderness to palpation, worse in the left pelvic region. No peritoneal signs) - Back Back: No CVA TTP, No spinal TTP - Derm Derm: Warm and dry - Extremities Extremities: No edema - Neuro Neuro: Alert and oriented X 3 Results - Vitals Vitals: Vital Signs - 24 hr 01/11/22 01/11/22 01/11/22 17:55 17:59 19:39 Temperature 37.2 C 37.2 C 37.1 C Heart Rate 72 72 125 H Respiratory 18 18 17 Rate Blood Pressure 138/75 H 138/75 H 122/72 O2 Saturation 99 99 98 Oxygen O2 Source Room air - Labs Labs: Laboratory Tests 01/11/22 01/11/22 01/11/22 18:25 18:25 18:25 WBC 5.5 RBC 4.37 Hgb 14.3 Hct 40.3 MCV 92.2 MCH 32.7 H MCHC 35.5 RDW 11.8 L Plt Count 195 MPV 9.6 Neut # (Auto) 3.0 Lymph # (Auto) 1.9 [place] # (Auto) 0.5 Eos # (Auto) 0.1 Baso # (Auto) 0.0 Absolute Nucleated RBC 0.00 Nucleated RBC % 0.0 Sodium 137 Potassium 3.5 Chloride 101 Carbon Dioxide 28 Anion Gap 8.0 BUN 12 Creatinine 0.6 Estimated GFR (MDRD) 106 Glucose 97 Calcium 9.2 Total Bilirubin 0.4 AST 26 ALT 26 Alkaline Phosphatase 66 Total Protein 7.1 Albumin 4.1 Globulin 3.0 Albumin/Globulin Ratio 1.4 Lipase 26 Urine Color YELLOW Urine Clarity CLEAR Urine pH 7.5 Ur Specific [place] 1.015 Urine Protein NEGATIVE Urine Glucose (UA) NEGATIVE Urine Ketones NEGATIVE Urine Occult Blood TRACE-INTA Urine Nitrite NEGATIVE Urine Bilirubin NEGATIVE Urine Urobilinogen 0.2 (NORMAL) Ur Leukocyte Esterase NEGATIVE Ur Microscopic Review NOT INDICATED Urine Culture Comments NOT INDICATED - Rads (name of study) CT abdomen pelvis Radiology: Final report received, EMP read contemporaneously, See rad report PD MEDICAL DECISION MAKING - ED course Complexity details: reviewed results, re-evaluated patient, considered differential, d/w patient ED course: Patient has what appears to be a 4.5 cm left ovarian cyst. Pain well controlled in the emergency department. No significant lab abnormalities. No other acute abnormalities on CT scan. She is on oxycodone at home, we will increase her to Dilaudid for couple of days until the acute pain has been controlled. Patient will follow up with her doctor for further care. Patient is well-appearing, nontoxic. Afebrile. I am prescribing a short course of short-acting opioid pain medication for this patient. 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 I have discussed that the opioids are for short term therapy only, and will not be refilled from the ED. patient counseled regarding signs and symptoms for which I believe and urgent re-evaluation would be necessary. Patient with good understanding of and agreement to plan and is comfortable going home at this time This document was made in part using voice recognition software. While efforts are made to proofread this document, sound alike and grammatical errors may occur. Departure - Departure Disposition: 01 Home, Self Care Clinical Impression: Ovarian cyst Qualifiers: Laterality: left Qualified Code(s): N83.202 - Unspecified ovarian cyst, left side Condition: Good Instructions: ED Cyst Ovarian Follow-Up: ZAIRE CHAVEZ MD [Primary Care Provider] - Within 1 week Prescriptions: HYDROmorphone [Dilaudid] 2 mg PO Q6H PRN #14 tablet PRN Reason: Abdominal Pain Comments: You appear to have a 4.5 cm left ovarian cyst. This is likely the cause of your pain. We will trial you on a short course of hydromorphone for home. You can use this for breakthrough pain. Your prescriptions were sent to [facility]. Please return if you worsen. Your doctor may want to consider repeat imaging in 4 to 6 weeks. I am prescribing a short course of narcotic pain medication for you. These are potentially dangerous and addictive medications that should be used carefully. These medications may constipate you. Take an yire-fzt-[id number] stool softener (docusate) twice daily with plenty of water while taking these medications. If you go 24 hours without a bowel movement, take [id number] miralax, per package instructions. Do not drink or drive while taking these medications. If you received narcotic or sedating medications while in the emergency department, do not drive for 24 hours. Store this medication in a safe, secure place and out of reach of children. It is a violation of federal law to give or sell this medication to another person or to use in a manner other than prescribed. The ED will not refill narcotic prescriptions, including prescriptions lost or stolen. To dispose of unwanted medications: 1. [facility] [address] in [place] has a medication drop box. They accept prescription medications (in pill form) Monday through Monday 9:00 a.m. to 5:00 p.m. 2. [facility] accepts prescription medications (in pill form only) for disposal year round. Call for more information. 3. Contact the [facility] for the next [facility] sponsored prescription drug collection event. , [phone], or [phone]; CT FINDINGS: ABDOMEN: Lung bases: Lung bases are clear. Heart size is normal. Solid organs: Liver and spleen are normal in size and enhancement. Gallbladder is surgically absent. Biliary system is non dilated. Pancreas enhances normally. No adrenal nodules. Kidneys demonstrate normal size and enhancement, without hydronephrosis. Peritoneum and bowel: Bowel loops demonstrate normal wall thickness and caliber. Normal appendix. No free fluid or air. Nodes and vessels: No retroperitoneal or mesenteric adenopathy by size criteria. Aorta and inferior vena cava are normal in size. Miscellaneous: No ventral hernias. Mild chronic linear stranding in the subcutaneous tissues may be postsurgical. PELVIS: Genitourinary: Bladder wall thickness is normal. Status post hysterectomy. A 4.5 cm left ovarian cyst is present. Miscellaneous: No inguinal hernias or adenopathy. Bones: No suspicious bony lesions. No vertebral body compression fractures. IMPRESSION: 1.Left ovarian 4.5 cm cyst is new compared to the prior CT from 11/27/2017, although the appearance is similar when compared to the CT from 06/30/2017. 2.Otherwise, no acute abnormality seen in the abdomen or pelvis. Discharge Date/Time: 01/11/22 19:47
[2022-01-11 18:33] LABS: BASOPHILS % (AUTO) 0.5 %; EOSINOPHILS # (AUTO) 0.1 10^3/uL (0.0-0.7); EOSINOPHILS % (AUTO) 1.5 %; HCT - HEMATOCRIT 40.3 % (37.0-47.0); HGB - HEMOGLOBIN 14.3 g/dL (12.0-16.0); LYMPHOCYTES # (AUTO) 1.9 10^3/uL (1.5-3.5); LYMPHOCYTES % (AUTO) 33.9 %; MEAN CORPUSCULAR HEMOGLOBIN 32.7 pg (27.0-31.0); MEAN CORPUSCULAR HGB CONC 35.5 g/dL (32.0-36.0); MEAN CORPUSCULAR VOLUME 92.2 fL (81.0-99.0); MEAN PLATELET VOLUME 9.6 fL (7.9-10.8); MONOCYTES # (AUTO) 0.5 10^3/uL (0.0-1.0); MONOCYTES % (AUTO) 9.7 %; NEUTROPHILS % (AUTO) 54.2 %; PLT - PLATELET COUNT 195 10^3/uL (130-450); RED BLOOD COUNT 4.37 10^6/uL (4.20-5.40); RED CELL DISTRIBUTION WIDTH 11.8 % (12.0-15.0); WHITE BLOOD COUNT 5.5 x10^3/uL (4.8-10.8)
[2022-01-11 18:37] LABS: BILIRUBIN,URINE NEGATIVE (NEGATIVE); CLARITY,URINE CLEAR (CLEAR); GLUCOSE, URINE (UA) NEGATIVE (NEGATIVE); KETONES,URINE (UA) NEGATIVE (NEGATIVE); LEUKOCYTE ESTERASE, URINE NEGATIVE (NEGATIVE); NITRITE,URINE NEGATIVE (NEGATIVE); OCCULT BLOOD,URINE TRACE-INTA (NEGATIVE); PH,URINE 7.5 PH (5.0-7.5); PROTEIN,URINE NEGATIVE (NEGATIVE); UROBILINOGEN,URINE 0.2 (NORMAL) E.U./dL (NORMAL)
[2022-01-11 18:46] LABS: ALBUMIN 4.1 g/dL (3.2-5.5); ALBUMIN/GLOBULIN RATIO 1.4 (1.0-2.2); BILIRUBIN,TOTAL 0.4 mg/dL (0.2-1.0); CALCIUM 9.2 mg/dL (8.5-10.3); CREATININE 0.6 mg/dL (0.4-1.0); POTASSIUM 3.5 mmol/L (3.5-5.0); TOTAL PROTEIN 7.1 g/dL (6.7-8.2)
--- NOTE | 2022-01-11 19:21 | CT Report ---
PROCEDURE: Abdomen/Pelvis W INDICATIONS: lower abd pain, has 1 ovary, hx of hysterectomy CONTRAST: IV CONTRAST: Optiray 320 ml: 100 PO CONTRAST: *NO PO CONTRAST TECHNIQUE: After the administration of intravenous contrast, 5 mm thick sections acquired from the diaphragms to the symphysis. 5 mm thick coronal and sagittal reformats were acquired. For radiation dose reducti on, the following was used: automated exposure control, adjustment of mA and/or kV according to morro ent size. COMPARISON: CT abdomen/pelvis 11/27/2017 and 06/30/2017, pelvic ultrasound 07/02/1979 FINDINGS: Image quality: Excellent. ABDOMEN: Lung bases: Lung bases are clear. Heart size is normal. Solid organs: Liver and spleen are normal in size and enhancement. Gallbladder is surgically absent . Biliary system is non dilated. Pancreas enhances normally. No adrenal nodules. Kidneys demonstr ate normal size and enhancement, without hydronephrosis. Peritoneum and bowel: Bowel loops demonstrate normal wall thickness and caliber. Normal appendix. N o free fluid or air. Nodes and vessels: No retroperitoneal or mesenteric adenopathy by size criteria. Aorta and inferior vena cava are normal in size. Miscellaneous: No ventral hernias. Mild chronic linear stranding in the subcutaneous tissues may be postsurgical. PELVIS: Genitourinary: Bladder wall thickness is normal. Status post hysterectomy. A 4.[address] is present. Miscellaneous: No inguinal hernias or adenopathy. Bones: No suspicious bony lesions. No vertebral body compression fractures. IMPRESSION: 1.Left ovarian 4.5 cm cyst is new compared to the prior CT from 11/27/2017, although the appearance is similar when compared to the CT from 06/30/2017. 2.Otherwise, no acute abnormality seen in the abdomen or pelvis. Reviewed by: Casper Hudson MD on 01/11/2022 7:19 PM PDT Approved by: Casper Hudson MD on 01/11/2022 7:19 PM PDT Station ID: [id number]
[2022-01-11] MEDS ORDERED: HYDROmorphone 2 MG TABLET PO STA (19:28)
[2022-01-11 19:41] VITALS: BP 122/72
== END 2022-01-11 19:47 | disposition home or self-care (01) ==
LOC: ED 17:49
DX: N83.202 Unspecified ovarian cyst, left side (principal)
CPT/HCPCS: 36415; 74177; 80053; 81003; 83690; 85025; 96374; 99284; A9270; J1170; Q9967; 81001; 87086

== ENCOUNTER 2022-08-02 12:22 | Outpatient (CLI) | payer OTHER ==
--- NOTE | 2022-08-02 14:00 | XRAY Report ---
PROCEDURE: Thoracic Spine 2 View INDICATIONS: CERVICAL, THORACIC, AND LUMBAR STRAIN TECHNIQUE: 2 views of the thoracic spine were acquired. COMPARISON: None. FINDINGS: Bones: No fractures or dislocations. No suspicious bony lesions. 12 pairs of ribs are noted, and a ppear intact where visualized. Minimal, multilevel disc loss. Soft tissues: No paravertebral stripe thickening. IMPRESSION: Minimal degenerative disc disease. Reviewed by: Negrito Turpin on 08/02/2022 1:58 PM PDT Approved by: Negrito Turpin on 08/02/2022 1:58 PM PDT Station ID: [id number]
--- NOTE | 2022-08-02 14:01 | XRAY Report ---
PROCEDURE: Lumbar Spine 2 View INDICATIONS: CERVICAL, THORACIC, AND LUMBAR STRAIN TECHNIQUE: 3 views of the lumbar spine were acquired. COMPARISON: None. FINDINGS: Bones: 5 rrx-hvp-nurkcgs vertebrae are present. There is normal bony alignment. No vertebral body compression fractures. No suspicious bony lesions. Mild disc height loss at L4-5 and L5-S1. Facet a rthrosis at L3-S1. Soft tissues: Overlying bowel gas pattern is normal. No suspicious soft tissue calcifications. IMPRESSION: Mild disc height loss at L4-5 and L5-S1. Facet arthrosis L3-S1. Reviewed by: Negrito Turpin on 08/02/2022 1:59 PM PDT Approved by: Negrito Turpin on 08/02/2022 1:59 PM PDT Station ID: [id number]
--- NOTE | 2022-08-02 14:03 | XRAY Report ---
PROCEDURE: Cervical Spine Comp w/Flex/Ext INDICATIONS: CERVICAL SPRAIN/STRAIN TECHNIQUE: 5 views of the cervical spine were acquired. COMPARISON: None. FINDINGS: Bones: No fractures or dislocations to the C7 level. No suspicious bony lesions. There is normal r swetha of motion between flexion and extension, with preserved normal bony alignment. Soft tissues: Prevertebral soft tissues are normal in thickness. IMPRESSION: No significant degenerative change or acute bony abnormality. Reviewed by: Negrito Turpin on 08/02/2022 2:01 PM PDT Approved by: Negrito Turpin on 08/02/2022 2:01 PM PDT Station ID: [id number]
== END 2022-08-02 12:23 | disposition home or self-care (01) ==
LOC: DI.S 12:22
PROVIDERS: ATTEND Chiropractor
DX: M51.34 Other intervertebral disc degeneration, thoracic region (principal); M47.816 Spondylosis without myelopathy or radiculopathy, lumbar region; M51.36 Other intervertebral disc degeneration, lumbar region; M51.37 Other intervertebral disc degeneration, lumbosacral region; M47.817 Spondylosis without myelopathy or radiculopathy, lumbosacral region

== ENCOUNTER 2022-08-28 18:09 | Emergency (ER) | payer OTHER ==
--- NOTE | 2022-08-28 18:33 | ED Physician Documentation ---
PD HPI ABD PAIN - Stated complaint Stated Complaint: BLOATING - Chief complaint Chief Complaint: Abd Pain - History obtained from History obtained from: Patient - Additional information Additional information: 51-year-old woman who has had a hysterectomy with retained ovarian tissue due to PCOS and has recurrent ovarian cysts started a new supplement called [employer]School about a week ago. Starting 5 days ago she feels very bloated and skipped a few bowel movements. Had a very large bowel movement prior to arrival, but no relief of her bloating. She has early satiety and pain is radiating up. 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: Ovarian cysts - Past Surgical History Past Surgical History: Yes General: Cholecystectomy /METAL OR WOOD BLOCKER: Hysterectomy, Oophrectomy HEENT: Tonsil/Adenoidectomy - Present Medications Home Medications: Ambulatory Orders Medication Instructions Recorded Confirmed Control 1 tab ORAL DAILY 12/30/19 01/11/22 oxyCODONE [Roxicodone] 5 mg PO Q4-6H PRN 12/30/19 01/11/22 HYDROmorphone [Dilaudid] 2 mg PO Q6H PRN #14 tablet 01/11/22 Dicyclomine [Bentyl] 1 - 2 tab PO QID PRN #20 cap 08/29/22 Omeprazole 40 mg PO DAILY #30 cap 08/29/22 predniSONE [Deltasone] 40 mg PO DAILY 7 Days #14 tablet 08/29/22 - Allergies Allergies/Adverse Reactions: Allergies Allergy/AdvReac Type Severity Reaction Status Date / Time acetaminophen [From Vicodin] Allergy Unknown Verified 08/28/22 18:16 hydrocodone [From Vicodin] Allergy Unknown Verified 08/28/22 18:16 latex Allergy Itching Verified 08/28/22 18:16 scopolamine Allergy Hives Verified 08/28/22 18:16 Sulfa (Sulfonamide Allergy Unknown Verified 08/28/22 18:16 Antibiotics) - Social History Does the pt smoke?: No Smoking Status: Never smoker Does the pt drink ETOH?: No Does the pt have substance abuse?: No - Immunizations Immunizations are current?: No Immunizations: TDAP >10years/unknown PD ED PE NORMAL - Vitals Vital signs reviewed: Yes - General General: Alert and oriented X 3, No acute distress - Cardiac Cardiac: RRR, No murmur - Respiratory Respiratory: No respiratory distress, Clear bilaterally - Abdomen Abdomen: Other (Somewhat bloated without ascites, diminished bowel sounds without tenderness.) - Neuro Neuro: Alert and oriented X 3, Normal speech Results - Vitals Vitals: Vital Signs - 24 hr 08/28/22 08/28/22 08/28/22 18:13 20:16 22:00 Temperature 36.7 C 36.2 C L Heart Rate 90 83 98 Respiratory 16 18 18 Rate Blood Pressure 118/85 H 99/66 119/81 H O2 Saturation 98 98 98 Oxygen O2 Source Room air - Labs Labs: Laboratory Tests 08/28/22 08/28/22 08/28/22 18:43 18:43 18:52 WBC 7.1 RBC 4.75 Hgb 14.9 Hct 44.0 MCV 92.6 MCH 31.4 H MCHC 33.9 RDW 11.8 L Plt Count 256 MPV 10.0 Neut # (Auto) 4.5 Lymph # (Auto) 1.8 [place] # (Auto) 0.5 Eos # (Auto) 0.1 Baso # (Auto) 0.0 Absolute Nucleated RBC 0.00 Nucleated RBC % 0.0 Sodium 136 Potassium 4.5 Chloride 102 Carbon Dioxide 25 Anion Gap 9.0 BUN 11 Creatinine 0.6 Estimated GFR (MDRD) 106 Glucose 102 H Calcium 9.2 Total Bilirubin 0.6 AST 19 ALT 12 Alkaline Phosphatase 53 Total Protein 6.8 Albumin 3.6 Globulin 3.2 Albumin/Globulin Ratio 1.1 Lipase 28 Urine Color YELLOW Urine Clarity CLEAR Urine pH 6.0 Ur Specific [place] 1.010 Urine Protein NEGATIVE Urine Glucose (UA) NEGATIVE Urine Ketones NEGATIVE Urine Occult Blood TRACE-LYSE Urine Nitrite NEGATIVE Urine Bilirubin NEGATIVE Urine Urobilinogen 0.2 (NORMAL) Ur Leukocyte Esterase NEGATIVE Ur Microscopic Review NOT INDICATED Urine Culture Comments NOT INDICATED - Rads (name of study) CT A/P Relevant Findings:: Final report received, EMP independent interpretation of test PD Medical Decision Making - ED course ED course: 51-year-old woman on chronic opiates presents with 5 days of feeling very bloated with abdominal cramping but a benign exam. She declined any pain medication here. Her CBC was reviewed and normal, CMP reviewed and normal. Did a CAT scan with IV contrast. On my independent review. She has a little excess stool especially in the transverse colon with I think probably a mild enteritis. The previously noted right ovarian cyst from the prior scan has resolved. We are seeing very delayed radiology turnaround times this evening and after discussion she would like to go home and do some MiraLAX and a clear liquid diet and I will call her tomorrow if there are major abnormal findings on the CT scan. Called and spoke with pt 0900 08/29/22 and discussed possiblesclerosing mesenteritis. Emailed uptodate article and rx to [facility] incl pred. D/w need for f/u and potential bx if not improving or recurrent. Departure - Departure Disposition: Home, Self Care Clinical Impression: Abdominal pain Qualifiers: Abdominal location: generalized Qualified Code(s): R10.84 - Generalized abdominal pain Condition: Good Record reviewed to determine appropriate education?: Yes Instructions: ED Abdominal Pain Female Non-Specific Abdominal Pain Prescriptions: Dicyclomine [Bentyl] 1 - 2 tab PO QID PRN #20 cap PRN Reason: Abdominal Pain predniSONE [Deltasone] 40 mg PO DAILY 7 Days #14 tablet Omeprazole 40 mg PO DAILY #30 cap Comments: As discussed, on my view of your CAT scan the previously noted ovarian cyst from December of last year has resolved. I think you have probably a mild enteritis and modest constipation. I would recommend a clear liquid diet with a daily dose of MiraLAX for the next day. You can continue the MiraLAX after that. I will call you tomorrow at [phone] if there are significant abnormal findings on the CT. Return if worse. Follow-up with your primary care physician. Discharge Date/Time: 08/28/22 22:31
[2022-08-28] MEDS ORDERED: iohexoL-300 100 ML VIAL ONE (18:46)
[2022-08-28 18:48] LABS: BASOPHILS % (AUTO) 0.6 %; EOSINOPHILS # (AUTO) 0.1 10^3/uL (0.0-0.7); EOSINOPHILS % (AUTO) 1.4 %; HGB - HEMOGLOBIN 14.9 g/dL (12.0-16.0); LYMPHOCYTES # (AUTO) 1.8 10^3/uL (1.5-3.5); MEAN CORPUSCULAR HEMOGLOBIN 31.4 pg (27.0-31.0); MEAN CORPUSCULAR HGB CONC 33.9 g/dL (32.0-36.0); MEAN CORPUSCULAR VOLUME 92.6 fL (81.0-99.0); MONOCYTES # (AUTO) 0.5 10^3/uL (0.0-1.0); MONOCYTES % (AUTO) 7.7 %; NEUTROPHILS # (AUTO) 4.5 10^3/uL (1.5-6.6); NEUTROPHILS % (AUTO) 64.2 %; PLT - PLATELET COUNT 256 10^3/uL (130-450); RED BLOOD COUNT 4.75 10^6/uL (4.20-5.40); RED CELL DISTRIBUTION WIDTH 11.8 % (12.0-15.0); WHITE BLOOD COUNT 7.1 x10^3/uL (4.8-10.8)
[2022-08-28 19:11] LABS: ALBUMIN 3.6 g/dL (3.2-5.5); ALBUMIN/GLOBULIN RATIO 1.1 (1.0-2.2); BILIRUBIN,TOTAL 0.6 mg/dL (0.2-1.0); CALCIUM 9.2 mg/dL (8.5-10.3); CREATININE 0.6 mg/dL (0.4-1.0); POTASSIUM 4.5 mmol/L (3.5-5.0); TOTAL PROTEIN 6.8 g/dL (6.7-8.2)
[2022-08-28 22:09] VITALS: BP 119/81
[2022-08-28] MEDS ORDERED: polyethylene glycoL 3350 17 GM PACKET PO STA (22:13)
--- NOTE | 2022-08-28 23:19 | CT Report ---
PROCEDURE: ABDOMEN/PELVIS W INDICATIONS: abd pain CONTRAST: 100 ML OMNI 300 TECHNIQUE: After the administration of intravenous contrast, 5 mm thick sections acquired from the diaphragms to the symphysis. 5 mm thick coronal and sagittal reformats were acquired. For radiation dose reducti on, the following was used: automated exposure control, adjustment of mA and/or kV according to morro ent size. COMPARISON: CT abdomen pelvis 01/11/2022, 11/27/2017 FINDINGS: Image quality: Excellent. Lung bases: Unremarkable. Heart: Heart is normal in size. ABDOMEN: Liver: No mass lesion. Gallbladder:Surgically absent. There is mild biliary ductal dilatation. No calcified common duct sto shannan. Findings are similar to the prior studies and may reflect sequelae of prior cholecystectomy. Biliary ducts:There is mild central intrahepatic Pancreas: Unremarkable. Spleen: Normal in size. Adrenal Glands: No adrenal nodules. Kidneys and Ureters: No hydronephrosis. Stomach and Bowel: Stomach, small bowel loops, and colon are normal in caliber and wall thickness. T he appendix is normal in appearance. Peritoneum: No abnormal intraperitoneal fluid. No free air. Ventral Wall: No hernia. Abdominal Nodes: No retroperitoneal or mesenteric adenopathy by size criteria. There is mild fat str anding in the mesentery with scattered small subcentimeter mesenteric lymph nodes. Vessels: Aorta and inferior vena cava are normal in size. PELVIS: Pelvic Organs: Unremarkable. Bladder:There is mild perivesicular fat stranding in the pelvis. The urinary bladder is partially di stended. Pelvic Nodes: No enlarged lymph nodes. Miscellaneous: No inguinal hernias. There is mild extraperitoneal fat stranding in the pelvis. Bones: Visualized osseous structures demonstrate no suspicious lesions. IMPRESSION: 1. Mild perivesicular fat stranding suggestive of a mild cystitis. Recommend correlation with urinaly sis. 2. Mild fat stranding in the mesentery with multiple small clustered mesenteric lymph nodes. The find ings are suggestive of an inflammatory process such as sclerosing mesenteritis. Reviewed by: Cole Rossi MD on 08/28/2022 11:18 PM PDT Approved by: Cole Rossi MD on 08/28/2022 11:18 PM PDT Station ID: [id number]
[2022-08-28] MEDS ORDERED: iohexoL-300 100 ML VIAL IVP ONE (23:50)
[2022-08-28 23:57] LABS: BILIRUBIN,URINE NEGATIVE (NEGATIVE); GLUCOSE, URINE (UA) NEGATIVE (NEGATIVE); KETONES,URINE (UA) NEGATIVE (NEGATIVE); LEUKOCYTE ESTERASE, URINE NEGATIVE (NEGATIVE); NITRITE,URINE NEGATIVE (NEGATIVE); OCCULT BLOOD,URINE TRACE-LYSE (NEGATIVE); PROTEIN,URINE NEGATIVE (NEGATIVE); UROBILINOGEN,URINE 0.2 (NORMAL) E.U./dL (NORMAL)
[2022-08-28 23:58] LABS: CLARITY,URINE CLEAR (CLEAR)
== END 2022-08-28 22:31 | disposition home or self-care (01) ==
LOC: ED 18:09
DX: R10.84 Generalized abdominal pain (principal); Z91.040 Latex allergy status
CPT/HCPCS: 36415; 74177; 80053; 81003; 83690; 85025; 99283; 99284; A9270; Q9967; 81001; 87086

== ENCOUNTER 2022-08-29 19:02 | Emergency (ER) | payer OTHER ==
--- NOTE | 2022-08-29 20:02 | ED Physician Documentation ---
PD HPI NVD - Stated complaint Stated Complaint: V,N,D,HEADACHE - Chief complaint Chief Complaint: Abd Pain - History obtained from History obtained from: Patient - Additonal information Additional information: HPI from patient. Patient was treated and released from this emergency department yesterday For abdominal discomfort, specifically a sensation of abdominal bloating.She had no remarkable findings on blood tests performed yesterday. However, the CT of the abdomen and pelvis had findings suggestive of sclerosing mesenteritis. She has already set up an appointment with her primary care provider for tomorrow, but returns due to nausea and vomiting starting approximately 4 hours prior to arrival, progressing to the point of not being able to keep down even sips of fluid. She says she did not have vomiting when she was in the emergency department yesterday.She does not have antinausea medications at home. Review of Systems Constitutional: denies: Fever GI: reports: Nausea, Vomiting. denies: Abdominal Pain, Hematemesis, Bloody / black stool PD PAST MEDICAL HISTORY - Past Medical History Past Medical History: Yes INFORMATICIST: Ovarian cysts - Past Surgical History Past Surgical History: Yes General: Cholecystectomy /INFORMATICIST: Hysterectomy, Oophrectomy HEENT: Tonsil/Adenoidectomy - Present Medications Home Medications: Ambulatory Orders Medication Instructions Recorded Confirmed Control 1 tab ORAL DAILY 12/30/19 01/11/22 oxyCODONE [Roxicodone] 5 mg PO Q4-6H PRN 12/30/19 01/11/22 HYDROmorphone [Dilaudid] 2 mg PO Q6H PRN #14 tablet 01/11/22 Dicyclomine [Bentyl] 1 - 2 tab PO QID PRN #20 cap 08/29/22 Omeprazole 40 mg PO DAILY #30 cap 08/29/22 predniSONE [Deltasone] 40 mg PO DAILY 7 Days #14 tablet 08/29/22 Ondansetron Odt [Zofran Odt] 4 mg TL Q6H PRN #10 tablet 08/30/22 - Allergies Allergies/Adverse Reactions: Allergies Allergy/AdvReac Type Severity Reaction Status Date / Time acetaminophen [From Vicodin] Allergy Unknown Verified 08/28/22 18:16 hydrocodone [From Vicodin] Allergy Unknown Verified 08/28/22 18:16 latex Allergy Itching Verified 08/28/22 18:16 scopolamine Allergy Hives Verified 08/28/22 18:16 Sulfa (Sulfonamide Allergy Unknown Verified 08/28/22 18:16 Antibiotics) - Living Situation Living Arrangement: reports: At home - Social History Does the pt smoke?: No Smoking Status: Never smoker Does the pt drink ETOH?: No Does the pt have substance abuse?: No - Immunizations Immunizations are current?: No Immunizations: TDAP >10years/unknown PD ED PE NORMAL - Vitals Vital signs reviewed: Yes - General General: Alert and oriented X 3, No acute distress, Well developed/nourished - HEENT HEENT: Other (tacky/pasty mucous membranes) - Cardiac Cardiac: RRR, No murmur - Respiratory Respiratory: No respiratory distress, Clear bilaterally - Abdomen Abdomen: Normal bowel sounds, Soft, Non tender, Non distended - Derm Derm: Normal color, Warm and dry Results - Vitals Vitals: Oxygen O2 Source Room air - Labs Labs: Laboratory Tests 08/29/22 08/29/22 08/29/22 20:20 20:20 20:20 WBC 6.2 RBC 4.14 L Hgb 13.3 Hct 38.4 MCV 92.8 MCH 32.1 H MCHC 34.6 RDW 11.9 L Plt Count 219 MPV 10.1 Neut # (Auto) 5.0 Lymph # (Auto) 0.9 L [place] # (Auto) 0.2 Eos # (Auto) 0.0 Baso # (Auto) 0.0 Absolute Nucleated RBC 0.00 Nucleated RBC % 0.0 Sodium 135 Potassium 3.4 L Chloride 103 Carbon Dioxide 23 Anion Gap 9.0 BUN 8 Creatinine 0.5 Estimated GFR (MDRD) 131 Glucose 112 H Calcium 8.5 Total Bilirubin 0.6 AST 17 ALT 15 Alkaline Phosphatase 58 Total Protein 7.0 Albumin 4.0 Globulin 3.0 Albumin/Globulin Ratio 1.3 Lipase 37 Urine Color LT. YELLOW Urine Clarity HAZY Urine pH 6.0 Ur Specific [place] 1.010 Urine Protein NEGATIVE Urine Glucose (UA) NEGATIVE Urine Ketones 40 H Urine Occult Blood SMALL H Urine Nitrite NEGATIVE Urine Bilirubin NEGATIVE Urine Urobilinogen 0.2 (NORMAL) Ur Leukocyte Esterase NEGATIVE Urine RBC 6-10 H Urine WBC 0-3 Ur Squamous Epith Cells NONE SEEN Urine Bacteria None Seen Ur Microscopic Review INDICATED Urine Culture Comments NOT INDICATED Urine HCG, Qual NEGATIVE PD Medical Decision Making - ED course Complexity details: reviewed old records, reviewed results, re-evaluated patient, considered differential, d/w patient ED course: Given IV zofran, IV NS x 2 liters, and IV toradol 30mg (for headache), and on reevaluation, she reports excellent symptom relief. Repeat CBC, ER abdominal panel tonight are without remarkable/concerning results. Return precautions discussed, will follow up with PMD. Departure - Departure Disposition: 01 Home, Self Care Clinical Impression: Vomiting Qualifiers: Vomiting type: unspecified Nausea presence: with nausea Qualified Code(s): R11.2 - Nausea with vomiting, unspecified Condition: Good Instructions: ED Nausea Vomiting Follow-Up: ZAIRE CHAVEZ MD [Primary Care Provider] - Prescriptions: Ondansetron Odt [Zofran Odt] 4 mg TL Q6H PRN #10 tablet PRN Reason: Nausea / Vomiting Comments: There were no concerning findings on tonight's blood tests. As we discussed, you have a minimally low potassium (3.4, with the low end of normal being 3.5). This is not nearly low enough to cause symptoms nor any concern. Follow-up with your primary care provider later today (08/30/2022) as scheduled. You will likely need further testing and possibly a specialist consult for the findings on the CAT scan of your abdomen/pelvis performed on your previous ER visit. Discharge Date/Time: 08/30/22 01:29
[2022-08-29 20:37] LABS: BILIRUBIN,URINE NEGATIVE (NEGATIVE); GLUCOSE, URINE (UA) NEGATIVE (NEGATIVE); KETONES,URINE (UA) 40 mg/dL (NEGATIVE); LEUKOCYTE ESTERASE, URINE NEGATIVE (NEGATIVE); NITRITE,URINE NEGATIVE (NEGATIVE); OCCULT BLOOD,URINE SMALL (NEGATIVE); PROTEIN,URINE NEGATIVE (NEGATIVE); UROBILINOGEN,URINE 0.2 (NORMAL) E.U./dL (NORMAL)
[2022-08-29 20:40] LABS: CLARITY,URINE HAZY (CLEAR); HCG UR QUAL NEGATIVE
[2022-08-29] MEDS ORDERED: ONDANSETRON 4 MG/2 ML VIAL IVP STA ×2 (20:41→21:56)
[2022-08-29 20:47] LABS: BASOPHILS % (AUTO) 0.3 %; EOSINOPHILS % (AUTO) 0.3 %; HCT - HEMATOCRIT 38.4 % (37.0-47.0); HGB - HEMOGLOBIN 13.3 g/dL (12.0-16.0); LYMPHOCYTES # (AUTO) 0.9 10^3/uL (1.5-3.5); LYMPHOCYTES % (AUTO) 14.8 %; MEAN CORPUSCULAR HEMOGLOBIN 32.1 pg (27.0-31.0); MEAN CORPUSCULAR HGB CONC 34.6 g/dL (32.0-36.0); MEAN CORPUSCULAR VOLUME 92.8 fL (81.0-99.0); MEAN PLATELET VOLUME 10.1 fL (7.9-10.8); MONOCYTES # (AUTO) 0.2 10^3/uL (0.0-1.0); MONOCYTES % (AUTO) 3.9 %; NEUTROPHILS % (AUTO) 80.4 %; PLT - PLATELET COUNT 219 10^3/uL (130-450); RED BLOOD COUNT 4.14 10^6/uL (4.20-5.40); RED CELL DISTRIBUTION WIDTH 11.9 % (12.0-15.0); WHITE BLOOD COUNT 6.2 x10^3/uL (4.8-10.8)
[2022-08-29 20:50] LABS: ALBUMIN/GLOBULIN RATIO 1.3 (1.0-2.2); BILIRUBIN,TOTAL 0.6 mg/dL (0.2-1.0); CALCIUM 8.5 mg/dL (8.5-10.3); CREATININE 0.5 mg/dL (0.4-1.0); POTASSIUM 3.4 mmol/L (3.5-5.0)
[2022-08-29 20:56] LABS: BACTERIA,URINE None Seen /HPF (None Seen); SQUAMOUS EPITHELIAL CELL,UR NONE SEEN (<= Few); WBC,URINE 0-3 /HPF (0-5)
[2022-08-29] MEDS ORDERED: SODIUM CHLORIDE 0.9% 1,000 ML IV STA ×2 (21:56→23:26)
[2022-08-29] MEDS ORDERED: KETOROLAC 30 MG/ML VIAL IVP STA (21:56)
[2022-08-30] MEDS ORDERED: ONDANSETRON ODT 4 MG Prepack 2 TL PRN (01:10)
[2022-08-30 01:13] VITALS: BP 111/72
== END 2022-08-30 01:29 | disposition home or self-care (01) ==
LOC: ED 19:02
DX: R11.2 Nausea with vomiting, unspecified (principal)
CPT/HCPCS: 36415; 80053; 81001; 81003; 81025; 83690; 85025; 87086; 96374; 96375; 96376; 99283

== ENCOUNTER 2023-05-03 07:58 | Outpatient (CLI) | payer OTHER | END 2023-05-03 23:59 | disposition EMS.NT | LOC: EMS 07:58 | DX: M79.18 Myalgia, other site (principal); W00.0XXA Fall on same level due to ice and snow, initial encounter; Y92.008 Other place in unspecified non-institutional (private) residence as the place of occurrence of the external cause ==

== ENCOUNTER 2023-06-03 08:00 | Outpatient (CLI) | payer OTHER ==
[2023-06-03 20:39] LABS: INFLUENZA A- RESP PCR PANEL NOT DETECTED; INFLUENZA B - RESP PCR PANEL NOT DETECTED; RSV- RESP PCR PANEL NOT DETECTED; SARS-CoV-2 -RESP PCR PANEL NOT DETECTED
== END 2023-06-03 23:59 | disposition home or self-care (01) ==
LOC: LAB.S 08:00
PROVIDERS: ATTEND Physician Assistant Medical
DX: J06.9 Acute upper respiratory infection, unspecified (principal)
CPT/HCPCS: 87637

== ENCOUNTER 2023-06-09 20:56 | Emergency (ER) | payer OTHER ==
[2023-06-09 21:10] VITALS: O2SAT 100
--- NOTE | 2023-06-09 21:12 | ED Physician Documentation ---
History of Present Illness - Stated complaint Stated Complaint: - Chief complaint Chief Complaint: Abd Pain - Additonal information Additional information: 52 year old with chronic pain due to issues. Patient is on chronic pain meds for chronic pain. Patient says today she started to have some new left lower quadrant ovarian pain she says that she is confident this is her ovarian cyst pain. She said that she recently went off her control about 3 weeks ago not per her doctors orders but just something she wanted to trial. She said that she has been trying to do heating pads and taking her chronic pain meds at home with little to no relief. No dysuria no new sexual partners no vaginal bleeding or discharge. She said that she has already had a complete full hysterectomy but they were unable to get her left ovary when they did the complete hysterectomy. 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: Hysterectomy, Oophrectomy HEENT: Tonsil/Adenoidectomy - Present Medications Home Medications: Ambulatory Orders Medication Instructions Recorded Confirmed oxyCODONE [Roxicodone] 5 mg PO Q4-6H PRN 12/30/19 06/09/23 Cetirizine HCl [Zyrtec] 10 mg PO DAILY 06/09/23 06/09/23 - Allergies Allergies/Adverse Reactions: Allergies Allergy/AdvReac Type Severity Reaction Status Date / Time acetaminophen [From Vicodin] Allergy Unknown Verified 06/09/23 21:04 hydrocodone [From Vicodin] Allergy Unknown Verified 06/09/23 21:04 latex Allergy Itching Verified 06/09/23 21:04 scopolamine Allergy Hives Verified 06/09/23 21:04 Sulfa (Sulfonamide Allergy Unknown Verified 06/09/23 21:04 Antibiotics) - Social History Does the pt smoke?: No Smoking Status: Never smoker Does the pt drink ETOH?: No Does the pt have substance abuse?: No - Immunizations Immunizations are current?: No Immunizations: TDAP >10years/unknown - POLST Patient has POLST: No PD ED PE NORMAL - Vitals Vital signs reviewed: Yes - General General: Alert and oriented X 3, No acute distress, Well developed/nourished - HEENT HEENT: Atraumatic - Abdomen Abdomen: Normal bowel sounds, Soft, Non distended (Left lower quadrant tenderness), No organomegaly - Derm Derm: Normal color, Warm and dry, No rash Results - Vitals Vitals: Vital Signs - 24 hr 06/09/23 06/09/23 21:01 23:01 Temperature 36.1 C L Heart Rate 90 80 Respiratory 18 16 Rate Blood Pressure 147/75 H 149/76 H O2 Saturation 100 100 Oxygen O2 Source Room air - Labs Labs: Laboratory Tests 06/09/23 06/09/23 06/09/23 21:03 21:20 21:20 WBC 7.1 RBC 4.53 Hgb 14.3 Hct 42.0 MCV 92.7 MCH 31.6 H MCHC 34.0 RDW 11.8 L Plt Count 317 MPV 9.6 Neut # (Auto) 3.2 Lymph # (Auto) 3.2 [place] # (Auto) 0.5 Eos # (Auto) 0.1 Baso # (Auto) 0.0 Absolute Nucleated RBC 0.00 Nucleated RBC % 0.0 Sodium 137 Potassium 3.3 L Chloride 103 Carbon Dioxide 28 Anion Gap 6.0 BUN 15 Creatinine 0.5 L Estimated GFR (MDRD) 131 Glucose 98 Calcium 9.1 Magnesium Total Bilirubin 0.3 AST 25 ALT 36 Alkaline Phosphatase 84 Total Protein 7.1 Albumin 4.4 Globulin 2.7 Albumin/Globulin Ratio 1.6 Lipase 21 Urine Color YELLOW Urine Clarity CLEAR Urine pH 7.0 Ur Specific [place] 1.015 Urine Protein NEGATIVE Urine Glucose (UA) NEGATIVE Urine Ketones TRACE Urine Occult Blood TRACE-LYSE Urine Nitrite NEGATIVE Urine Bilirubin NEGATIVE Urine Urobilinogen 0.2 (NORMAL) Ur Leukocyte Esterase NEGATIVE Ur Microscopic Review NOT INDICATED Urine Culture Comments NOT INDICATED 06/09/23 21:20 WBC RBC Hgb Hct MCV MCH MCHC RDW Plt Count MPV Neut # (Auto) Lymph # (Auto) [place] # (Auto) Eos # (Auto) Baso # (Auto) Absolute Nucleated RBC Nucleated RBC % Sodium Potassium Chloride Carbon Dioxide Anion Gap BUN Creatinine Estimated GFR (MDRD) Glucose Calcium Magnesium 2.0 Total Bilirubin AST ALT Alkaline Phosphatase Total Protein Albumin Globulin Albumin/Globulin Ratio Lipase Urine Color Urine Clarity Urine pH Ur Specific [place] Urine Protein Urine Glucose (UA) Urine Ketones Urine Occult Blood Urine Nitrite Urine Bilirubin Urine Urobilinogen Ur Leukocyte Esterase Ur Microscopic Review Urine Culture Comments - Rads (name of study) Pelvic transvaginal ultrasound Relevant Findings:: Final report received, EMP independent interpretation of test, Other (3 ovarian cyst identified on left ovary. No ovarian torsion. 1 cm vascular focus of the soft tissues in the right adnexal region) PD Medical Decision Making - ED course ED course: 52-year-old female presents emergency department for left lower quadrant pain/pelvic pain. Patient reports this feels exactly like the other time she has had ovarian cyst no vaginal bleeding no vaginal discharge. Labs are complete no leukocytosis, CMP shows that her potassium is slightly suppressed at 3.3, urinalysis complete no leukocytes no nitrites making me less suspicious this is due to possible urinary tract infection. Transvaginal/pelvic ultrasound was complete which reveals. Possible 1 cm vascular focus of the soft tissue in the right adnexal region and 3 ovarian cyst on the left side with 1 complex cyst and 2 smaller minimally complicated cyst total ovarian size is about 7 cm. Radiology is recommending the patient to repeat pelvic ultrasound in 6 to 12 weeks versus possible pelvic MRI. Patient was informed of these results She was told to follow-up with her primary care provider for reevaluation of her pelvic pain. She is on a pain contract with her primary care provider so no additional pain medications will be ordered and patient agrees with this and is okay with this. Pain is well-controlled prior to discharge. No concerns of ovarian torsion at this time given patient presentation and ultrasound results. Departure - Departure Disposition: 01 Home, Self Care Clinical Impression: Hypokalemia Ovarian cyst Qualifiers: Laterality: left Qualified Code(s): N83.202 - Unspecified ovarian cyst, left side Instructions: Cysts Ovarian, Hypokalemia Dc Comments: Thank you for trusting us with your care. You completed an ultrasound of your left ovary and it appears that you have a couple ovarian cyst. As we discussed I would start back up on your control again. Follow-up with your primary care provider in regards to your pain medications. Please come back to the emergency department for having any vaginal bleeding, worsening pain, fevers or chills or any other concerning symptoms. Status post hysterectomy and right oophorectomy. A 1.0 cm possible vascular focus of soft tissue in the right adnexal region. This may represent artifact versus possible residual ovarian tissue. Attention on follow-up imaging recommended. There are 3 ovarian cysts identified. Largest appears complex and measures 3.6 cm in size. There are 2 smaller, minimally complicated cysts measuring approximately 2.2 and 1.8 cm respectively. These were not appreciated on most recent comparison CT of the abdomen/pelvis and appears different compared to the 2018 pelvic ultrasound. Recommend follow-up pelvic ultrasound in 6-12 weeks to document stability versus resolution. If findings persist, further characterization with pelvic MRI can be considered at that time. Forms: PCP List Discharge Date/Time: 06/09/23 23:20
[2023-06-09 21:27] LABS: BILIRUBIN,URINE NEGATIVE (NEGATIVE); GLUCOSE, URINE (UA) NEGATIVE (NEGATIVE); KETONES,URINE (UA) TRACE mg/dL (NEGATIVE); LEUKOCYTE ESTERASE, URINE NEGATIVE (NEGATIVE); NITRITE,URINE NEGATIVE (NEGATIVE); OCCULT BLOOD,URINE TRACE-LYSE (NEGATIVE); PROTEIN,URINE NEGATIVE (NEGATIVE); UROBILINOGEN,URINE 0.2 (NORMAL) E.U./dL (NORMAL)
[2023-06-09 21:28] LABS: CLARITY,URINE CLEAR (CLEAR)
[2023-06-09 21:30] LABS: BASOPHILS % (AUTO) 0.4 %; EOSINOPHILS # (AUTO) 0.1 10^3/uL (0.0-0.7); EOSINOPHILS % (AUTO) 1.7 %; HGB - HEMOGLOBIN 14.3 g/dL (12.0-16.0); LYMPHOCYTES # (AUTO) 3.2 10^3/uL (1.5-3.5); LYMPHOCYTES % (AUTO) 45.3 %; MEAN CORPUSCULAR HEMOGLOBIN 31.6 pg (27.0-31.0); MEAN CORPUSCULAR VOLUME 92.7 fL (81.0-99.0); MEAN PLATELET VOLUME 9.6 fL (7.9-10.8); MONOCYTES # (AUTO) 0.5 10^3/uL (0.0-1.0); MONOCYTES % (AUTO) 6.5 %; NEUTROPHILS # (AUTO) 3.2 10^3/uL (1.5-6.6); NEUTROPHILS % (AUTO) 45.8 %; PLT - PLATELET COUNT 317 10^3/uL (130-450); RED BLOOD COUNT 4.53 10^6/uL (4.20-5.40); RED CELL DISTRIBUTION WIDTH 11.8 % (12.0-15.0); WHITE BLOOD COUNT 7.1 x10^3/uL (4.8-10.8)
[2023-06-09 21:46] LABS: ALBUMIN 4.4 g/dL (3.2-5.5); ALBUMIN/GLOBULIN RATIO 1.6 (1.0-2.2); BILIRUBIN,TOTAL 0.3 mg/dL (0.2-1.0); CALCIUM 9.1 mg/dL (8.5-10.3); CREATININE 0.5 mg/dL (0.6-1.3); POTASSIUM 3.3 mmol/L (3.5-4.5); TOTAL PROTEIN 7.1 g/dL (6.4-8.9)
[2023-06-09] MEDS: ONDANSETRON 4 MG/2 ML VIAL IVP STA (22:17)
[2023-06-09] MEDS: HYDROmorphone 0.5 MG/0.5 ML SYRINGE IVP STA (22:20)
[2023-06-09] MEDS: KETOROLAC 30 MG/ML VIAL IVP STA (22:22)
[2023-06-09] MEDS: POTASSIUM BICARB 25 MEQ TABLET PO STA (22:59)
[2023-06-09] MEDS: POTASSIUM CHLORIDE 20 MEQ TABLET PO STA (23:07)
[2023-06-09 23:17] VITALS: BP 149/76
--- NOTE | 2023-06-09 23:39 | Ultrasound Report ---
PROCEDURE: Pelvic w/Transvag+Doppler Comp INDICATIONS: LLQ pain TECHNIQUE: Real-time scanning was performed of the pelvic organs, with image documentation. Additional endovagi nal scanning was necessary due to incomplete visualization of the adnexal and endometrial structures by transabdominal scanning. Doppler interrogation was performed of the ovaries bilaterally. COMPARISON: 07/01/2017, and CT abdomen/pelvis dated 08/28/2022. FINDINGS: Uterus: Surgically absent Ovaries: Status post right oophorectomy. In the right adnexal region, there is an ill-defined focus m easuring approximately 1.0 x 1.0 cm with associated vascularity. The left ovary measures 3.7 x 3.6 x 3.7 cm, with a calculated ovarian volume of 25.8 cc. Appropriate blood flow to the left ovary with D oppler interrogation. There is a complex cyst in the left ovary measuring 3.2 x 3.1 x 3.6 cm. There is a complicated cyst measuring 1.6 x 2.2 x 1.4 cm. There is a third cyst measuring 1.8 x 0.9 x 1.1 cm. These are in close proximity to the complex cyst described above. These appear different compared to the complicated cyst seen on comparison ultrasound of 2018. Pelvic masses/cysts were not apprecia megan on comparison CT from 2022. Other: No pathologic free abdominal or pelvic fluid. IMPRESSION: Status post hysterectomy and right oophorectomy. A 1.0 cm possible vascular focus of soft tissue in the right adnexal region. This may represent artif act versus possible residual ovarian tissue. Attention on follow-up imaging recommended. There are 3 ovarian cysts identified. Largest appears complex and measures 3.6 cm in size. There are 2 smaller, minimally complicated cysts measuring approximately 2.2 and 1.8 cm respectively. These wer e not appreciated on most recent comparison CT of the abdomen/pelvis and appears different compared t o the 2018 pelvic ultrasound. Recommend follow-up pelvic ultrasound in 6-12 weeks to document stabili ty versus resolution. If findings persist, further characterization with pelvic MRI can be considered at that time. Reviewed by: Erich Leblanc MD on 06/09/2023 11:37 PM PST Approved by: Erich Leblanc MD on 06/09/2023 11:37 PM PST Station ID: [id number]
== END 2023-06-09 23:20 | disposition home or self-care (01) ==
LOC: ED 20:56
DX: N83.202 Unspecified ovarian cyst, left side (principal); E87.6 Hypokalemia; Z90.710 Acquired absence of both cervix and uterus; Z90.721 Acquired absence of ovaries, unilateral
CPT/HCPCS: 36415; 76830; 76856; 80053; 81003; 83690; 83735; 85025; 93975; 96374; 96375; 99284; A9270; J1170; 81001; 87086